=== PATIENT | female | born 1990 ===

== ENCOUNTER 2018-01-02 18:56 | Emergency (ER) | payer BC ==
[2018-01-02 18:56] VITALS: BMI 26.9
[2018-01-02 19:04] VITALS: BP 153/83; PULSE 80; RESP 16; TEMP 98.2; O2SAT 98
[2018-01-02] MEDS ORDERED: Ofloxacin 0.3% Ophth Soln OD STA (19:13)
--- NOTE | 2018-01-02 19:17 | C.PDOC ---
History Of Present Illness 27 year old female presents to the emergency room complaining of itching, redness, and discharge to the right eye since this afternoon. By the evening, she developed puffiness and swelling to upper eyelid. No direct injury or trauma. Denies any fever or visual changes. Does not wear contact lenses. Time Seen by Provider: 01/02/18 19:10 Chief Complaint (Nursing): Eye Problem History Per: Patient History/Exam Limitations: no limitations Onset/Duration Of Symptoms: Days (x1) Current Symptoms Are (Timing): Still Present Past Medical History Reviewed: Historical Data, Nursing Documentation, Vital Signs Vital Signs: Last Vital Signs Temp 98.2 F 01/02/18 19:01 Pulse 80 01/02/18 19:01 Resp 16 01/02/18 19:01 BP 153/83 H 01/02/18 19:01 Pulse Ox 98 01/02/18 19:37 - Medical History PMH: Depression, Personality Disorder, Post Traumatic Stress Disorder Surgical History: No Surg Hx - [facility] Procedures REPAIR OB LACERATION NEC (04/22/13) Family History: States: Unknown Family Hx - Social History Hx Tobacco Use: Yes Hx Alcohol Use: Yes Hx Substance Use: No - Immunization History Hx Tetanus Toxoid Vaccination: No Hx Influenza Vaccination: No Hx Pneumococcal Vaccination: No Review Of Systems Constitutional: Negative for: Fever Eyes: Positive for: Eyelid Inflammation, Redness, Other (Discharge). Negative for: Vision Change Physical Exam - Physical Exam Appears: Well, Non-toxic, No Acute Distress Skin: Normal Color Head: Atraumatic, Normacephalic Eye(s): bilateral: PERRL, EOMI, right: Eyelid Inflammation (right upper lid), Other (Diffuse conjunctival injection to right eye with purulent discharge), left: Normal Inspection Nose: Normal Oral Mucosa: Moist Neurological/Psych: Oriented x3, Normal Speech, Other (no deficits) ED Course And Treatment O2 Sat by Pulse Oximetry: 98 (RA) Pulse Ox Interpretation: Normal Medical Decision Making Medical Decision Making: Patient with right eye redness itching, discharge and swelling starting today. Eye exam consistent with conjunctivitis. No signs of foreign body or orbital cellulitis. Patient treated with antibiotic eye drop. Patient advised to use eye drops three times daily and follow up with optho if the symptoms persist. Disposition Counseled Patient/Family Regarding: Diagnosis, Need For Followup, Rx Given - Disposition Referrals: Cornell Sanabria [Staff Provider] - Disposition: HOME/ ROUTINE Disposition Time: 19:19 Condition: GOOD Additional Instructions: Apply antibiotic drop to affected eye 3 times a day for one week Keep hands clean and avoid touching eyes Follow up with optho if symptoms persist longer than a week or any change in vision, severe pain, or other concern Prescriptions: Ofloxacin Ophth 0.3% [Ocuflox Ophth 0.3%] 5 ml OD TID 7 Days #1 bottle Instructions: Conjunctivitis (ED) Forms: [employer] ([place]) - POA Present On Arrival: None - Clinical Impression Clinical Impression: Conjunctivitis - PA / AUDIT LEAD / Resident Statement MD/DO has reviewed & agrees with the documentation as recorded. - Scribe Statement The provider has reviewed the documentation as recorded by the Scribe (Elyse Bowman) All medical record entries made by the Scribe were at my direction and personally dictated by me. I have reviewed the chart and agree that the record accurately reflects my personal performance of the history, physical exam, medical decision making, and the department course for this patient. I have also personally directed, reviewed, and agree with the discharge instructions and disposition.
== END 2018-01-02 20:08 | disposition home or self-care (01) ==
LOC: C.ER 18:56
DX: H10.9 Unspecified conjunctivitis (principal)